=== PATIENT | female | born 1980 | race Caucasian/White ===

== ENCOUNTER 2025-09-30 06:00 | Emergency (ER) | payer SELFPAY ==
[2025-09-30 06:12] VITALS: BP 144/90
[2025-09-30 06:34] VITALS: BP 145/107
[2025-09-30 06:36] VITALS: BP 134/104
[2025-09-30 06:38] VITALS: BP 134/104
--- NOTE | 2025-09-30 06:39 | ED.GENMED ---
History of Present Illness
General
Chief Complaint: Cough
Source: patient
Exam Limitations: none
Time Seen by Provider: 09/30/25 06:32
History of Present Illness
History of Present Illness:
See MDM
Past History
Past History
ED Past Medical History: None
ED Past Surgical History: None
Social History
Tobacco: Non-smoker
Alcohol: None
Drug: None
Personal:
Living: with family
Phy Exam
Physical Exam
Physical Exam:
See MDM
Course
Orders/Labs/Results
Orders:
Orders
09/30/25 06:38
Ipratropium/Albuterol Sulfate [Duoneb] 3 ml INH R NOW STA
CR Chest - 2 Views Urgent
Comment:
Reason For Exam: cough x 1 week
09/30/25 06:39
Electrocardiogram (*1) Urgent
Reason for Study: Shortness of Breath
EKG- Treatment ONCE
09/30/25 06:41
COVID-19 Antigen Urgent
Source: Nasal Swab
Influenza A+B Rapid Molecular Urgent
DORITA Source: Nasal Swab
Specimen Description:
Vital Signs
Initial and Last Documented VS:
Initial Vital Signs
Temp Pulse Resp BP Pulse Ox
98.7 F 100 20 144/90 99
09/30/25 06:12 09/30/25 06:12 09/30/25 06:12 09/30/25 06:12 09/30/25 06:12
Last Documented Vital Signs
Temp Pulse Resp BP Pulse Ox
98.4 F 95 18 145/98 98
09/30/25 06:36 09/30/25 07:27 09/30/25 07:27 09/30/25 07:27 09/30/25 07:27
MDM/Problems Addressed
Differential Diagnosis Includes:
Note:
CHIEF COMPLAINT(S)
Cough
HISTORY OF PRESENT ILLNESS
The patient is a 45-year-old female who presents with a complaint of a persistent cough lasting over a week. She reports that her primary care doctor advised that it needed to run its course, but she feels it is worsening. The patient denies any
known recent exposures to illness from others. She mentions being adequately hydrated despite experiencing dryness.
Upon evaluation by an Ear, Nose, and Throat specialist, the patient was prescribed prednisone for four days for associated chest pain and generalized aches, which improved with the medication. However, the prednisone did not alleviate the cough. Her
primary care provider recommended [id number]-[id number] dextromethorphan to address the cough and offered a prescription for codeine, which the patient declined.
PHYSICAL EXAM
General: Alert, no acute distress.
Skin: Warm, dry.
Head: Normocephalic, atraumatic
Neck: Appears supple, trachea midline.
Eyes, Ears, Nose, Mouth, and Throat: Mildly dry mucous membranes
Cardiovascular: No signs of cyanosis. Regular rate and rhythm
Respiratory: Respirations are non-labored. No wheezing appreciated.
Abdomen: Non-distended
Musculoskeletal: No deformities
Neurological: No focal neurological deficit observed.
Psychiatric: Cooperative, appropriate mood and affect.
PLAN
- Administer a cough suppressant for symptomatic relief.
- Obtain a chest x-ray to rule out underlying pathology.
- Perform tests for COVID-19 and influenza, despite a previously negative COVID-19 test.
- Administer a breathing treatment to alleviate potential bronchospasm.
DIFFERENTIAL DIAGNOSIS
- The Differential Diagnosis includes, in no particular order and is not limited to:
- Upper Respiratory Infection
- Bronchitis
- Pertussis
- Viral Pneumonia
- Gastroesophageal Reflux Disease (GERD-related cough)
- Postnasal Drip
- Asthma Exacerbation
- Chronic Obstructive Pulmonary Disease (COPD) Exacerbation
- Allergic Rhinitis
- Cardiac Issues (ruled out with an EKG)
SUMMARY OF ENCOUNTER
The patient presented to the emergency department with a week-long history of a cough that persists and seems to be worsening, despite an initial treatment plan from her primary care doctor. The emergency assessment was conducted to rule out
possible infectious causes and other underlying conditions given the persistence of symptoms. Based on discussions, a decision was made to perform imaging and provide symptomatic treatment.
FOLLOW-UP INSTRUCTIONS
Instruct the patient to follow up with her primary care provider if symptoms do not improve or if any new symptoms develop. Additionally, to schedule an ENT follow-up for further evaluation if the cough persists despite emergency management.
MEDICAL DECISION MAKING
Chronic conditions affecting care include the recent symptoms of cough and chest pain. Previous medication use such as prednisone was documented.
- Complexity of Data Reviewed: Referenced differential diagnoses.
- Data:
- Category 1: Consideration of x-ray to evaluate for lung pathology.
- Category 2: The patients history of ENT and primary care were considered in the plan to avoid unnecessary lab work.
- Category 3: Suggested that prescription medications considered but declined due to patient preference.
- Risk: Prescription medication was considered but not given.
DIAGNOSIS
- Acute Cough, R05
- Chest Pain, Unspecified, R07.9
SUMMARY OF ENCOUNTER
The patient, a 45-year-old female, presented to the emergency department due to a persistent and worsening cough lasting over a week. Despite previous management by her primary care doctor and the use of prednisone, the cough persisted. A chest
x-ray was performed and returned clear, with no evidence of pneumonia. The patient was tested and found to be positive for influenza A. Despite being out of the window for effective use of oseltamivir, she acknowledged her diagnosis and understood
that the current management would focus on symptomatic relief. There was minimal relief from a prior breathing treatment, and she awaited further cough suppressant medication.
PLAN
Administer a cough suppressant for symptomatic relief and ensure patient understanding of current management focusing on symptom alleviation. Consider azithromycin if future needs arise, although not currently indicated. The patient was advised to
undergo further evaluation if symptoms persist.
INDEPENDENT REVIEW OF LABS AND INTERPRETATION OF TESTS
- My independent review of influenza testing is positive for influenza A.
- My independent interpretation of the chest x-ray is clear with no evidence of pneumonia.
PATIENT EDUCATION AND COUNSELING
The patient was educated on her diagnosis of influenza A and discussed that antibiotics are not indicated at this point. She understands that current treatment will focus on managing symptoms and providing relief from her cough.
FOLLOW-UP INSTRUCTIONS
The patient was advised to follow up with her primary care provider if symptoms do not improve or if new symptoms develop. Additionally, arrangements for further evaluation with an Ear, Nose, and Throat specialist were recommended if the cough
continues despite current strategies.
MEDICATION RECONCILIATION
- Symptomatic relief medication: Cough suppressant, specifics pending.
MEDICAL DECISION MAKING
- Number and Complexity of Problems Addressed: Chronic conditions affecting care include the recent symptoms of cough and chest pain. Consideration was given to influenza A positive result.
- Data:
Category 1: Independent review of influenza test and chest x-ray.
- Risk: Prescription medication was considered but depends on future observation. Decided against the use of oseltamivir as the patient was out of the effective treatment window.
DIAGNOSIS
- Acute Cough, unspecified (R05)
- Influenza due to other identified influenza virus with other respiratory manifestations (J10.1)
*Pulse Oximetry
SaO2: 99
Oxygen Mode of Delivery: Room air
Patient hypoxic: no
*EKG
Interpreted by ED Provider?: Yes
EKG Intrepretation Date: 09/30/25
Interpretation: normal (Normal sinus rhythm at 94 bpm, normal axis, no ST elevation)
*Critical Care Note
Total Time (30-74mins, 75-104mins- exclusive of procedures): Not Applicable
ED Attending Note
-
Portions of this chart may have been created with voice recognition software.� Occasional wrong word or��sound alike� substitutions may have occurred due to the inherent limitations of voice recognition software.
Discharge Plan
Departure
Patient Disposition: Home (Routine Discharge)
Date of Disposition: 09/30/25
Time of Disposition: 07:58
Patient with high blood pressure during this ER visit?: Yes
Discharge Problem:
Influenza A
Instructions: Flu in adults - ED (DC), BLOOD PRESSURE
Prescriptions:
New
codeine-guaifenesin 10-100 mg/5 mL liquid
5 ml PO Q6H PRN (Reason: cold symptoms) Qty: 200 0RF
No Action
prednisone 50 MG tablet
50 mg PO DAILY Qty: 5 0RF
triamcinolone acetonide 1 APPLIC lotion
1 applic topical TID Qty: 1 0RF
Activity Restrictions/Additional Instructions:
Please return for any worsening symptoms.
You may return at any time if you have further concerns.
Please follow up with your doctor at the first available appointment, preferably this week.
Thank you for choosing [facility].
Interventions
Interventions:
*Risk Screen - Suicide Last Done: 09/30/25 06:12
*Neglect/Abuse Screening Last Done: 09/30/25 06:12
*ED- Fall Risk Assessment Last Done: 09/30/25 06:12
*ED COVID-19 Vaccine History Last Done: 09/30/25 06:12
*ED Influenza Vaccine History Last Done: 09/30/25 06:12
ED- Pulmonary Assessment Last Done: 09/30/25 06:34
Discharge Date and Time
Print Language: TONGAN
[2025-09-30 07:04] LABS: COVID-19 Antigen Negative (Negative)
[2025-09-30] MEDS: DUONEB 3 ML INH (07:22)
[2025-09-30 07:27] VITALS: BP 145/98
== END 2025-09-30 08:05 | disposition home or self-care (01) ==
LOC: EMR 06:00
PROVIDERS: EMERGENCY PHYSICIAN Student in an Organized Health Care Education/Training Program
DX: J10.1 Influenza due to other identified influenza virus with other respiratory manifestations (principal); R05.9 Cough, unspecified
CPT/HCPCS: 99283; 94640; 71046; 87502; 87811; 93005